=== PATIENT | male | born 1995 | race African-American/Black ===

== ENCOUNTER 2020-02-25 22:11 | Emergency (ER) | payer OTHER ==
--- OUTSIDE RECORDS SUMMARY | 2020-02-25 22:18 | XMS REPORT | Summary of Care ---
:1995 Author Organization [facility] Address [address] [place] [id number] Care Team Providers Name Role Phone Mirtha Weaver Primary Care Provider Reason for Visit Reason Comments Allergic reaction Auth/Cert Status Reason Specialty Diagnoses / Referred By Referred To Procedures Contact Contact Emergency Medicine Ad[facility] Em ergency Dept [address] [place] [address] Fax: Encounter Details Date Type Department Care Team Description 01/05/2020 Emergency ADC-Emergency Sonya Lala, Urticaria (Primary Dx); Department EMNP Allergic reaction, initial encounter [address] [facility] [address] [place] [address] [id number] [place], [place] [address] Allergies No Known Allergiesdocumented as of this encounter (statuses as of 01/05/2020) Medications Medication Sig Dispensed Refills Start Date End Date Status predniSONE 20 mg Take 1 tablet by 8 tablet 0 01/05/202001/08 Active tabletIndications: mouth 2 (two) Urticaria, Allergic times daily for 4 reaction, initial days. encounter documented as of this encounter (statuses as of 01/05/2020) Active Problems No known active problemsdocumented as of this encounter (statuses as of 01/05/2020) Social History Tobacco Use Types Packs/Day Years Used Date Never Assessed Sex Assigned at Date Recorded Not on file COVID-19 Exposure Response Date Recorded In the last month, have you been in contact with No / Unsure 01/05/2020 4:24 PM CDT someone who was confirmed or suspected to have Coronavirus / COVID-19? documented as of this encounter Last Filed Vital Signs Vital Sign Reading Time Taken Comments Blood Pressure 114/77 01/05/2020 5:30 PM CDT Pulse 78 01/05/2020 5:20 PM CDT Temperature 37 C (98.6 F) 01/05/2020 4:32 PM CDT Respiratory Rate 21 01/05/2020 5:30 PM CDT Oxygen Saturation 100% 01/05/2020 5:30 PM CDT Inhaled Oxygen Concentration - - Weight 77.6 kg (171 lb) 01/05/2020 4:25 PM CDT Height 175.3 cm (5' 9") 01/05/2020 4:25 PM CDT Body Mass Index 25.25 01/05/2020 4:25 PM CDT documented in this encounter Discharge Instructions Sonya Hinds EMNP - 01/05/2020NO LIFE-THREATENING FINDINGS ON TODAY'S EXAM. SPECIAL INSTRUCTIONS: 1. Take medicines as prescribed 2. Recommend taking benadryl 25-50mg every 6 hours for rash/itching 3. Recommend taking pepcid twice daily for 3-5 days 4. See attached information Your hives will come and go over the next few days, please continue to take medicine as listed above. If you have difficulty breathing, swallowing, please seek medical help [place]. You will likely need to follow up with family medicine provider or dermatology for allergy testing. FOLLOW-UP RECOMMENDATIONS: RECOMMEND FOLLOW-UP WITH A PRIMARY CARE PROVIDER OR SPECIALIST IN 2-5 DAYS, ESPECIALLY IF NO IMPROVEMENT IN SYMPTOMS. TO FOLLOW-UP WITHIN THE [facility], TRY THESE OPTIONS (CLINIC APPOINTMENTS AVAILABLE ON BQOL-NS-VGMI BASIS): 1. SCHEDULE AN APPOINTMENT ONLINE AT WWW.[facility] 2. OR CALL THE [facility] ACCESS CENTER AT OR 3. OR CALL YOUR [facility] PHYSICIAN'S OFFICE DIRECTLY IF YOU ARE ALREADY AN ESTABLISHED [facility] PATIENT. OR, YOU MAY FOLLOW-UP WITH A PROVIDER OF YOUR CHOICE, SUCH : 1. A PHYSICIAN OF YOUR CHOICE 2. [facility], . LOCATIONS IN [facility] 3. [facility], [address], [place]; [phone] RETURN TO ER FOR WORSENING OF SYMPTOMS. AttachmentsThe following attachments cannot be sent through Care Everywhere. Hives (Adult) (Jordanian)Hives (Urticaria) Understanding (Jordanian)Allergic Reactions, General (Jordanian)documented in this encounter ED Notes Carolina Pavon RN - 01/05/2020 4:24 PM CDTPatient had a mtz smoothie from local restaurant at noon today. Afterwards he threw up and startedto notice hives everywhere. At 1500 today he took 50mg benadryl with no relief. Generalized hives noted. No audible wheezing. documented in this encounter Plan of Treatment Health Maintenance Due Date Last Done Comments VARICELLA VACCINES (1 of 2 - 2-dose 01/30/1997 childhood series) MENINGOCOCCAL B VACCINES (1 of 2 - 01/30/2006 Risk Bexsero 2-dose series) HPV VACCINES (1 - Male 2-dose 01/30/2007 series) Depression Screening 2008 DTaP,Tdap,and Td Vaccines (1 - 01/30/2015 Tdap) INFLUENZA VACCINE (#1) 2019 PNEUMOCOCCAL 0-64 YEARS COMBINED Aged Out No longer eligible based on SERIES patient's age to complete this topic documented as of this encounter Procedures Procedure Name Priority Date/Time Associated Diagnosis Comme nts CONSENT/REFUSAL FOR Routine 01/05/2020 4:16 PM CDT DIAGNOSIS AND TREATMENT documented in this encounter Results Not on filedocumented in this encounter Visit Diagnoses Diagnosis Urticaria - Primary Urticaria, unspecified Allergic reaction, initial encounter documented in this encounter Administered Medications Medication Order MAR Action Action Date Dose Rate Site famotidine 20 mg in NS 50 ml New Bag 01/05/2020 4:38 PM CDT 20 mg (PEPCID) 20 mg/50 mL Piggyback 20 mg 20 mg, IV Piggyback, ONCE, 1 dose, 01/05/20 at 1745, 50 mL methylprednisolone sod succ (SOLU-MEDROL) Given 01/05/2020 4:37 PM CDT 125 mg injection 125 mg 125 mg, Slow IV Push, ONCE, 1 dose, 01/05/20 at 1745, STAT NaCl 0.9% (NS) bolus infusion New Bag 01/05/2020 4:37 PM CDT 1,000 mL 999 mL/hr 1,000 mL at 999 mL/hr, 1,000 mL, IV Infusion, ONCE, 1 dose, 01/05/20 at 1745, STAT documented in this encounter documented as of this encounter
--- OUTSIDE RECORDS SUMMARY | 2020-02-25 22:18 | XMS REPORT | Summary of Care ---
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 Cough (Primary Dx); Department 301 [facility] Hemoptysis 132 [facility] [id number] [place] [id number] Allergies No Known Allergiesdocumented as of this encounter (statuses as of 12/09/2019) Medications No known medicationsdocumented as of this encounter (statuses as of 12/09/2019) Active Problems No known active problemsdocumented as of this encounter (statuses as of 12/09/2019) Social History Tobacco Use Types Packs/Day Years Used Date Never Assessed Sex Assigned at Date Recorded Not on file COVID-19 Exposure Response Date Recorded In the last month, have you been in contact with Yes 12/09/2019 11:54 AM CDT someone who was confirmed or suspected to have Coronavirus / COVID-19? documented as of this encounter Last Filed Vital Signs Vital Sign Reading Time Taken Comments Blood Pressure 118/81 12/09/2019 10:16 AM CDT Pulse 67 12/09/2019 10:16 AM CDT Temperature 37.1 C (98.7 F) 12/09/2019 10:16 AM CDT Respiratory Rate 16 12/09/2019 10:16 AM CDT Oxygen Saturation 97% 12/09/2019 10:16 AM CDT Inhaled Oxygen Concentration - - Weight 81.6 kg (180 lb) 12/09/2019 10:16 AM CDT Height - - Body Mass Index - - documented in this encounter Discharge Instructions Anand Dallas FNP - 12/09/2019DIAGNOSIS 1. Cough, hemoptysis NO LIFE-THREATENING FINDINGS ON TODAY'S EXAM. RECOMMEND FOLLOW-UP WITH A PRIMARY CARE PROVIDER OR SPECIALIST IN 2-5 DAYS, ESPECIALLY IF NO IMPROVEMENT IN SYMPTOMS. MAY FOLLOW-UP WITH A PROVIDER OF YOUR CHOICE, SUCH : 1. A PHYSICIAN OF YOUR CHOICE 2. [address] [place] [address], [address] [place] [address]; [phone] [facility], [address] [place] [address]; [phone] OR, IF YOU WISH TO FOLLOW-UP WITHIN THE [facility], MAY TRY THESE OPTIONS (CLINIC APPOINTMENTS AVAILABLE ON [id number]-[id number] BASIS): 1. SCHEDULE AN APPOINTMENT ONLINE AT WWW.[facility] 2. OR CALL THE [facility] ACCESS CENTER AT OR 3. OR CALL YOUR [facility] PHYSICIAN'S OFFICE DIRECTLY IF YOU ARE ALREADY AN ESTABLISHED [facility] PATIENT. RETURN TO ER FOR WORSENING OF SYMPTOMS. AttachmentsThe following attachments cannot be sent through Care Everywhere. Hemoptysis (Tanzanian)documented in this encounter ED Notes Andrey Girard RN - 12/09/2019 10:15 AM CDTPatient c/o coughing up blood this morning. documented in this encounter Miscellaneous Notes ED Nurse Note - Arlen Cuenca RN - 12/09/2019 12:07 PM CDTPt given printed and verbal discharge instructions regarding cough, hemoptasis encouraged hydration, Discussed ibuprofen and to take with food to avoid GI distress. Pt verbalized understanding of instructions, pt awake alert oriented, resp reg unlabored, skin w/d, color appropriate for race, moves all ext well,pt encouraged to follow up with PCP if worsening signsand symptoms. Advised to seek medical attention for new/prolonged/worsening of symptoms, Symptoms increase signs of infection, fever over 100.4 No adverse reaction to meds given in ER noted upon discharge PIV d'cd, dressing to site, catheter in tact. Awake, alert oriented, resp reg unlabored, skin w/d, pt leaving amb with steady gait, in no apparent distress, documented in this encounter Plan of Treatment Name Type Priority Associated Diagnoses Date/Ti me CORONAVIRUS COVID-19 LAB STAT Cough 020 11:52 AM CDT TESTING Name Type Priority Associated Diagnoses Order S chedule CORONAVIRUS COVID-19 LAB Routine Cough ONCE fo r 1 Occurrences TESTING starting 2019 until 12/09/2019 Health Maintenance Due Date Last Done Comments [...] Name Priority Date/Time Associated Diagnosis Comme nts XR CHEST 1 VW STAT 12/09/2019 11:36 AM Cough Results for this CDT procedure are i n the results section. NOTICE OF PRIVACY Routine 12/09/2019 10:01 AM PRACTICES CDT documented in this encounter Results Chest 1 View (12/09/2019 11:36 AM CDT) Specimen Narrative Performed At HISTORY: Cough. PACS/VR/DOSE TECHNIQUE: Portable AP erect view of the chest is obta ined. No prior chest study available for comparison. FINDINGS: No acute pneumonia. No pneumot horax or pleural effusion or pulmonary congestion detected. Cardiac s ize is within normal limits. CONCLUSIONS: No signs of acute cardiopulmonary disease . Procedure Note [facility], Radiant Results Inft User - 2019 11:40 AM CDT HISTORY: Cough. TECHNIQUE: Portable AP erect view of the chest is obtained. No prior chest study available for comparison. FINDINGS: No acute pneumonia. No pneumot horax or pleural effusion or pulmonary congestion detected. Cardiac s ize is within normal limits. CONCLUSIONS: No signs of acute cardiopul monary disease. Performing Organization Address City/State/Zipcode Phone Number PACS/VR/DOSE documented in this encounter Visit Diagnoses Diagnosis Cough - Primary Hemoptysis Hemoptysis, unspecified documented in this encounter Additional Health Concerns Infection Onset Date Last Indicated Resolved Time COVID-19 Rule Out 12/09/2019 12/09/2019 documented as of this encounter documented as of this encounter
--- OUTSIDE RECORDS SUMMARY | 2020-02-25 22:18 | XMS REPORT | Continuity of Care Document ---
:1995 Author Organization [facility] t Address [address] [place] [place] [address] Care Team Providers Name Role Phone Néstor Duffy Attending Clinician Nell Golden Attending Clinician Doctor Unassigned, Name Attending Clinician Unavailable Lab, Fam Pob I Attending Clinician Unavailable Problems This patient has no known problems. Allergies, Adverse Reactions, Alerts This patient has no known allergies or adverse reactions. Medications This patient has no known medications. Procedures This patient has no known procedures. Encounters Start End Encounter Admission Attending Care Care Encounter Source Date/Time Date/Time Type Type Clinicians Facility Department ID 2020-01-05 2020-01-05 Emergency [facility] [id number] 16:24:00 17:38:00 Sonya Anand [id number] [place] [id number] [place] [address] [id number] 2019-12-09 2019-12-09 Emergency [facility] [id number] 11:00:00 12:09:00 Anand Anand [id number] [place] [id number] [place] [address] [id number] 2019-12-09 2019-12-09 Orders Doctor KELLOGG [id number] 00:00:00 00:00:00 Only UnassignedNARCISO [id number] [place] [facility] [id number] 2019-11-17 2019-11-24 Laboratory Lab, [facility] [id number] 14:20:00 13:06:48 Only Fam Pob I Health [id number] [place] [id number] [place] [phone] nal [address] Results This patient has no known results.
--- OUTSIDE RECORDS SUMMARY | 2020-02-25 22:18 | XMS REPORT | Summary of Care ---
:1995 Author Organization [facility] - Health Address [address] [place] [address] Care Team Providers Name Role Phone Unavailable Primary Care Provider Unavailable Encounter Details Date Type Department Care Team Description 12/09/2019 Orders Only [facility] Doctor Unassigned, No [address] [facility] [place] [address] [address] [place] [address] Allergies Not on Filedocumented as of this encounter (statuses as of 12/09/2019) Medications Not on filedocumented as of this encounter (statuses as of 12/09/2019) Active Problems Not on filedocumented as of this encounter (statuses as of 12/09/2019) Social History Tobacco Use Types Packs/Day Years Used Date Never Assessed Sex Assigned at Date Recorded Not on file COVID-19 Exposure Response Date Recorded In the last month, have you been in contact with No / Unsure 11/17/2019 8:23 AM CDT someone who was confirmed or suspected to have Coronavirus / COVID-19? documented as of this encounter Last Filed Vital Signs Not on filedocumented in this encounter Plan of Treatment Health [...] Associated Diagnosis Comme nts CONSENT/REFUSAL FOR Routine 12/09/2019 10:01 AM CDT DIAGNOSIS AND TREATMENT documented in this encounter Results Not on filedocumented in this encounter Insurance Payer Benefit Plan / Group Subscriber ID Effective Dates Phone Address Type NATE SULLIVAN II [id number] 2019-Present [place] documented as of this encounter
[2020-02-25] MEDS ORDERED: dexAMETHasone 4 MG/ML VIAL ONE (22:54)
[2020-02-25] MEDS ORDERED: FAMOTIDINE 20 MG/2 ML VIAL IV ONE (22:54)
[2020-02-25] MEDS ORDERED: NA CHLORIDE 0.9% 1,000 ML ONE (22:54)
[2020-02-25] MEDS ORDERED: DIPHENHYDRAMINE 50 MG/ML VIAL ONE (23:02)
--- NOTE | 2020-02-25 23:58 | ER ---
Nurse's Notes [facility] Name: Constantino Higuera Age: 25 yrs Sex: Male : 1995 Arrival Date: 02/25/2020 Time: 22:12 Bed 20 Private MD: Diagnosis: Urticaria Presentation: 02/24 22:22 Chief complaint: Patient states: "I ate a kiwi about 40 min ago i started breaking out. jd3 it is not really that bad, but when I swallow it feels different and that is one of the things that got me worried.". Coronavirus screen: At this time, the client does not indicate any symptoms associated with coronavirus-19. Ebola Screen: Patient negative for fever greater than or equal to 101.5 degrees Fahrenheit, and additional compatible Ebola Virus Disease symptoms. Onset: The symptoms/episode began/occurred suddenly. Anaphylaxis evaluation, no signs or symptoms of anaphylaxis were noted. Initial Sepsis Screen: Does the patient meet any 2 criteria? No. Patient's initial sepsis screen is negative. Does the patient have a suspected source of infection? No. Patient's initial sepsis screen is negative. Risk Assessment: Do you want to hurt yourself or someone else? Patient reports no desire to harm self or others. Onset of symptoms was February 25, 2020. 22:22 Method Of Arrival: Ambulatory jd3 22:22 Acuity: CHET 3 jd3 Triage Assessment: 22:35 General: Behavior is calm. lp1 Historical: - Allergies: 22:23 No Known Allergies; jd3 - Home Meds: 22:23 None [Active]; jd3 - PMHx: 22:23 None; jd3 - PSHx: 22:23 Ear Tubes; right foot surg; jd3 - Immunization history:: Adult Immunizations up to date. - Social history:: Smoking status: Patient/guardian denies using tobacco, Stopped _ months ago 0.5. Screenin:35 Abuse screen: Denies threats or abuse. Denies injuries from another. Nutritional lp1 screening: No deficits noted. Tuberculosis screening: No symptoms or risk factors identified. Fall Risk Assessment: 22:35 General: Appears in no apparent distress. lp1 22:35 Pain: Denies pain. Neuro: Level of Consciousness is awake, alert, obeys commands, lp1 Oriented to person, place, time, situation. Cardiovascular: Patient's skin is warm and dry. Respiratory: Airway is patent Respiratory effort is even, unlabored, Respiratory pattern is regular, Breath sounds are clear bilaterally. Denies shortness of breath. GI: No signs and/or symptoms were reported involving the gastrointestinal system. : No signs and/or symptoms were reported regarding the genitourinary system. EENT: Throat is clear. Derm: Rash noted that is itchy, red, raised, urticaria. 22:35 Musculoskeletal: No deficits noted. lp1 23:33 Reassessment: Patient is alert, oriented x 3, equal unlabored respirations, skin lp1 warm/dry/pink. Hives noted to be less raised, redness resolved Patient states feeling better. Patient states symptoms have improved. Vital Signs: 22:24 BP 119 / 91; Pulse 102; Resp 18 S; Temp 98.2(O); Pulse Ox 97% on R/A; Weight 77.11 kg j (R); Height 5 ft. 9 in. (175.26 cm) (R); Pain 0/10; 23:35 BP 120 / 93; Pulse 68; Resp 16; Pulse Ox 99% on R/A; lp1 02/25 00:05 BP 129 / 92; Pulse 81; Resp 16; Pulse Ox 99% on R/A; lp1 02/24 22:24 Body Mass Index 25.10 (77.11 kg, 175.26 cm) [facility] ED Course: 02/24 22:12 Patient arrived in ED. ag5 22:12 [facility] Killian [facility] 22:12 Alexsander Aguilar MD is Attending Physician. [facility] 22:23 Triage completed. jd3 22:26 Arm band placed on. jd3 22:30 Zohra Daly, JAK is Primary Nurse. lp1 22:35 Patient has correct armband on for positive identification. lp1 22:39 Inserted saline lock: 20 gauge in left antecubital area, using aseptic technique. lp1 23:35 No provider procedures requiring assistance completed. lp1 02/25 00:06 IV discontinued, No redness/swelling at site. Pressure dressing applied. lp1 Administered Medications: 02/24 22:45 Drug: NS 0.9% 1000 ml Route: IV; Rate: 1 bolus; Site: left antecubital; lp1 02/25 00:07 Follow up: IV Status: IV converted to saline lock; IV Intake: 800ml lp1 02/24 22:45 Drug: Decadron - Dexamethasone 10 mg Route: IVP; Site: left antecubital; lp1 02/25 00:07 Follow up: Response: No adverse reaction lp1 02/24 22:45 Drug: Pepcid 20 mg Route: IVP; Site: left antecubital; lp1 02/25 00:07 Follow up: Response: No adverse reaction lp1 02/24 22:52 Drug: diphenhydrAMINE 25 mg Route: IVP; Site: left antecubital; lp1 02/25 00:07 Follow up: Response: No adverse reaction lp1 Intake: 00:07 IV: 800ml; Total: 800ml. lp1 Outcome: 02/24 23:57 Discharge ordered by MD. carrasquillo 02/25 00:06 Discharged to home ambulatory. lp1 Condition: good Discharge instructions given to patient, Instructed on discharge instructions, follow up and referral plans. medication usage, Demonstrated understanding of instructions, follow-up care, medications, Prescriptions given X 2. 00:06 Patient left the ED. lp1 Signatures: Alexey Killian PA PA jmm Pena, Laura, RN RN lp1 Andrea Shepherd RN RN jWagner Byrne ag5 Corrections: (The following items were deleted from the chart) 02/24 22:24 22:22 Chief complaint: Patient states: "I ate a kiwi about 40 min ago i started jd3 breaking out." jd3 22:24 22:22 Acuity: CHET 4 jd3 jd3 23:35 23:34 General: Appears lp1 lp1
--- NOTE | 2020-02-25 23:58 | EDPHYS ---
Physician Documentation [facility] Name: Constantino Higuera Age: 25 yrs Sex: Male : 1995 Arrival Date: 02/25/2020 Time: 22:12 Bed 20 Private MD: ED Physician Alexsander Aguilar HPI: 02/24 22:58 This 25 yrs old Black Male presents to ER via Ambulatory with complaints of Allergic jmm Reaction. 22:58 The patient presents with itching, rash. Onset: The symptoms/episode began/occurred jmm just prior to arrival. Associated signs and symptoms: Pertinent positives: hives, rash, Pertinent negatives: chest pain, dysphagia, fever, headache, shortness of breath, Syncope vomiting. Possible causes: just ate a kiwi prior to reaction. At home the patient or guardian has treated the symptoms with Benadryl. Historical: - Allergies: 22:23 No Known Allergies; jd3 - Home Meds: 22:23 None [Active]; jd3 - PMHx: 22:23 None; jd3 - PSHx: 22:23 Ear Tubes; right foot surg; jd3 - Immunization history:: Adult Immunizations up to date. - Social history:: Smoking status: Patient/guardian denies using tobacco, Stopped _ months ago 0.5. ROS: 22:58 Constitutional: Negative for fever, chills, and weight loss, Cardiovascular: Negative jmm for chest pain, palpitations, and edema, Respiratory: Negative for shortness of breath, cough, wheezing, and pleuritic chest pain, Abdomen/GI: Negative for abdominal pain, nausea, vomiting, diarrhea, and constipation. 22:58 Skin: Positive for rash. 22:58 All other systems are negative. Exam: 22:58 Constitutional: This is a well developed, well nourished patient who is awake, alert, jmm and in no acute distress. Head/Face: atraumatic. Eyes: EOMI, no conjunctival erythema appreciated ENT: Moist Mucus Membranes Neck: Trachea midline, Supple Chest/axilla: Normal chest wall appearance and motion. Cardiovascular: Regular rate and rhythm. No edema appreciated Respiratory: Normal respirations, no respiratory distress appreciated Abdomen/GI: Non distended, soft Back: Normal ROM 22:58 Skin: hives noted diffusely . 22:58 Neuro: Orientation: is normal, Mentation: is normal, Memory: is normal. 22:58 Psych: Behavior/mood is pleasant, cooperative. Vital Signs: 22:24 BP 119 / 91; Pulse 102; Resp 18 S; Temp 98.2(O); Pulse Ox 97% on R/A; Weight 77.11 kg jd3 (R); Height 5 ft. 9 in. (175.26 cm) (R); Pain 0/10; 23:35 BP 120 / 93; Pulse 68; Resp 16; Pulse Ox 99% on R/A; lp1 02/25 00:05 BP 129 / 92; Pulse 81; Resp 16; Pulse Ox 99% on R/A; lp1 02/24 22:24 Body Mass Index 25.10 (77.11 kg, 175.26 cm) jd3 MDM: 02/24 22:33 Patient medically screened. neida 23:56 Data reviewed: vital signs, nurses notes. Counseling: I had a detailed discussion with neida the patient and/or guardian regarding: the historical points, exam findings, and any diagnostic results supporting the discharge/admit diagnosis, the need for outpatient follow up, to return to the emergency department if symptoms worsen or persist or if there are any questions or concerns that arise at home. ED course: Hives have decreased. Patient is advised to d/c [place]. Advised to follow up with pcp and otherwise given strict return precautions. Patient understood and agrees with the plan of care. . 02/24 22:33 Order name: Saline Lock; Complete Time: 22:39 [facility] Administered Medications: 22:45 Drug: NS 0.9% 1000 ml Route: IV; Rate: 1 bolus; Site: left antecubital; lp1 02/25 00:07 Follow up: IV Status: IV converted to saline lock; IV Intake: 800ml lp1 02/24 22:45 Drug: Decadron - Dexamethasone 10 mg Route: IVP; Site: left antecubital; lp1 02/25 00:07 Follow up: Response: No adverse reaction lp1 02/24 22:45 Drug: Pepcid 20 mg Route: IVP; Site: left antecubital; lp1 02/25 00:07 Follow up: Response: No adverse reaction 1 02/24 22:52 Drug: diphenhydrAMINE 25 mg Route: IVP; Site: left antecubital; lp1 02/25 00:07 Follow up: Response: No adverse reaction lp1 Disposition: 00:31 Co-signature as Attending Physician, Alexsander Aguilar MD. rn Disposition: 02/25/20 23:57 Discharged to Home. Impression: Urticaria. - Condition is Stable. - Discharge Instructions: Hives. - Prescriptions for Hydroxyzine HCl 25 mg Oral Tablet - take 1 tablet by ORAL route every 6 hours As needed; 30 tablet. Prednisone 20 mg Oral Tablet - take 3 tablet by ORAL route once daily for 5 days; 15 tablet. - Medication Reconciliation Form, Thank You Letter, Antibiotic Education, Prescription Opioid Use, Work release form form. - Follow up: Private Physician; When: 2 - 3 days; Reason: Recheck today's complaints, Continuance of care, Re-evaluation by your physician. Signatures: Alexey Killian PA PA jmm Nieto, Roman, MD MD rn Zohra Daly RN RN lp1 Andrea Shepherd RN RN jd3 Corrections: (The following items were deleted from the chart) 00:06 02/24 23:57 02/25/2020 23:57 Discharged to Home. Impression: Urticaria. Condition is lp1 Stable. Forms are Medication Reconciliation Form, Thank You Letter, Antibiotic Education, Prescription Opioid Use. Follow up: Private Physician; When: 2 - 3 days; Reason: Recheck today's complaints, Continuance of care, Re-evaluation by your physician. neida
[2020-02-26 01:34] VITALS: TEMP 98.2
[2020-02-26 01:36] VITALS: O2SAT 99
[2020-02-26 01:37] VITALS: BP 129/92
== END 2020-02-26 00:06 | disposition home or self-care (01) ==
LOC: ER 22:11
DX: L50.9 Urticaria, unspecified (principal)
CPT/HCPCS: 96361; 96375; 96374; 99283; J1100; J1200; J7030

== ENCOUNTER 2022-02-21 08:32 | Emergency (ER) | payer BC ==
--- OUTSIDE RECORDS SUMMARY | 2022-02-21 08:37 | XMS REPORT | Continuity of Care Document ---
:1995 Author Organization [facility] t Address [address] [place] [address] [place] [id number] Care Team Providers Name Role Phone WILMER COX Attending Clinician Unavailable Tereza TECHNICAL MAINTENANCE SPECIALIST-CWilmer Attending Clinician NEEL COREA Attending Clinician Unavailable Sonya Duffy Attending Clinician Anand Golden Attending Clinician Doctor Unassigned, [place] Attending Clinician Unavailable Lab, Adc Fam Pob I Attending Clinician Unavailable Enedelia Tidwell Attending Clinician ENEDELIA CALLAHAN Attending Clinician Unavailable Payers Payer Name Policy Type Policy Number Effective Date Expiration Date S ruby CIGNA II [id number] 2019 00:00:00 BCBS 2 [id number] 2020 00:00:00 Problems Condition Condition Condition Status Onset Resolution Last Treating Co mments Source Name Details Category Date Date Treatment Clinician Date Childhood Childhood Disease Active Juwan sey asthma asthma 01-02 Seybold 00:00: 00 No known No known Disease Unive rs active active ity of problems problems [facility] Allergies, Adverse Reactions, Alerts Allergy Allergy Status Severity Reaction(s) Onset Inactive Treating Comm ents Source Name Type Date Date Clinician NO KNOWN Drug Active [facility] ALLERGIE Class ity of [facility] Social History Social Habit Start Date Stop Date Quantity Comments Source Sex Assigned At [facility] Exposure to Not sure Shaila Raymondol missael SARS-CoV-2 (event) History of tobacco Cigarette Smoker Shaila Price use Smoking Status Start Date Stop Date Source Smokes tobacco daily 2020-08-30 00:00:00 Shaila Price Unknown if ever smoked [facility] Medications Ordered Filled Start Stop Current Ordering Indication Dosage Frequency Signature Comments Components Source Medication Medication Date Date Medication? Clinician (SIG) Name Name Albuterol Yes [id number] 2{puff} Q6H Inhale 2 Shaila HFA 108 (90 9-07 puffs into Se ybold Base) 00:00: the lungs MCG/ACT IN 00 every 6 AERS hours as needed for wheezing Pseudoephed Yes [id number] 1{tbl} Take 1 Shaila rine-Guaife 01-02 tablet by Jesse avilain 00:00: mouth (Mucinex D 00 every 12 Max hours Strength) 120-1200 MG oral Tablet 12 Hour Sustained Release Dexamethaso Yes [id number] 6mg Take 1 Shaila ne 6 MG 01-02 tablet (6 Seybold oral Tablet 00:00: mg total) 00 by mouth daily (with breakfast) FLUTICASONE 2020-0 202- No [id number] 50ug Use 1 Shaila PROPIONATE, 01-02 10-08 spray (50 Se ybold NASAL, 00:00: 04:59 mcg total) (Flonase) 00 :00 in each 50 MCG/ACT nostril nasal daily Suspension Doxycycline Yes [id number] 100mg Take 1 Shaila Hyclate 100 5-05 tablet Seybol d MG oral 00:00: (100 mg Tablet 00 total) by mouth 2 times daily NaCl 0.9% 2019-0 2019- No 1000mL at 999 Uni vers (NS) bolus 01-04 09-09 mL/hr, ity of infusion 22:45: 22:34 1,000 mL, Loc as 1,000 mL 00 :00 IV Medical Infusion, Sofía ONCE, 1 dose, 01/05/20 at 1745, STAT famotidine No 20mg 20 mg, IV U nivers 20 mg in NS 01-04 Piggyback, i ty of 50 ml 22:45: 22:34 ONCE, 1 [place] (PEPCID) 20 00 :00 dose, Wed Med ical mg/50 mL 01/05/20 at Branch Piggyback 1745, 50 20 mg mL methylpredn No 125mg 125 mg, U nivers isolone sod 01-04 Slow IV ity of succ 22:45: 21:37 Push, [place] (SOLU-MEDRO 00 :00 ONCE, 1 Medic al L) dose, Fri Branch injection 01/05/20 at 125 mg 1745, STAT predniSONE No [id number] 20mg Take 1 Univers 20 mg 01-04 tablet by ity of tablet 00:00: 04:59 mouth 2 [place] 00 :00 (two) Medical times [place] daily for 4 days. No known No [facility] Immun[facility] Ordered Immunization Filled Immunization Date Status Commen ts Source Name Name Influenza Virus 2020-02-16 Completed Shaila Se ybold Vaccine, age 6 months 00:00:00 and up Influenza Virus 2019-03-24 Completed Shaila Se ybold Vaccine, age 6 months 00:00:00 and up Influenza Virus 2018-03-18 Completed Shaila Se ybold Vaccine, age 6 months 00:00:00 and up Meningococcal 2015-08-22 Completed Shaila Raymond old Vaccine- 00:00:00 Conjugate(Menactra) Meningococcal 2015-08-21 Completed Shaila Raymond old Vaccine- 00:00:00 Conjugate(Menactra) Vital Signs Vital Name Observation Time Observation Value Comments Source Systolic blood 2020-01-05 22:30:00 114 mm[Hg] Univer sity of pressure [facility] Diastolic blood 2020-01-05 22:30:00 77 mm[Hg] Unive rsity of pressure [facility] Respiratory rate 2020-01-05 22:30:00 21 /min [facility] saturation in 2020-01-05 22:30:00 100 /min [facility] Arterial blood by [facility] Pulse oximetry Branch Heart rate 2020-01-05 22:20:00 78 /min [facility] [place] [facility] Body temperature 2020-01-05 21:32:25 37 Chelle [facility] [place] [facility] Body height 2020-01-05 21:25:00 175.3 cm [facility] [place] [facility] Body weight 2020-01-05 21:25:00 77.565 kg [facility] [place] [facility] BMI 2020-01-05 21:25:00 25.25 kg/m2 [facility] [place] [facility] Systolic blood 2020-01-05 22:30:00 114 mm[Hg] Univer sity of pressure [place] [facility] Diastolic blood 2020-01-05 22:30:00 77 mm[Hg] Unive rsity of pressure [place] [facility] Respiratory rate 2020-01-05 22:30:00 21 /min [facility] [place] [facility] Oxygen saturation in 2020-01-05 22:30:00 100 /min University of Arterial blood by [facility] Pulse oximetry Branch Heart rate 2020-01-05 22:20:00 78 /min [facility] [place] [facility] Body temperature 2020-01-05 21:32:25 37 [place]le [facility] [place] [facility] Body height 2020-01-05 21:25:00 175.3 cm [facility] [place] [facility] Body weight 2020-01-05 21:25:00 77.565 kg [facility] [place] [facility] BMI 2020-01-05 21:25:00 25.25 kg/m2 [facility] [place] [facility] Systolic blood 2019-12-09 15:16:00 118 mm[Hg] Univer sity of pressure [place] [facility] Diastolic blood 2019-12-09 15:16:00 81 mm[Hg] Unive rsity of pressure [place] [facility] Heart rate 2019-12-09 15:16:00 67 /min [facility] [place] [facility] Body temperature 2019-12-09 15:16:00 37.06 [place]le [facility] [place] [facility] Respiratory rate 2019-12-09 15:16:00 16 /min [facility] [place] [facility] Body weight 2019-12-09 15:16:00 81.647 kg [facility] [place] [facility] Oxygen saturation in 2019-12-09 15:16:00 97 /min University of Arterial blood by [place] CK1 roberto Pulse oximetry Branch Systolic blood 2019-12-09 15:16:00 118 mm[Hg] Univer sity of pressure [facility] Diastolic blood 2019-12-09 15:16:00 81 mm[Hg] Unive rsity of pressure [facility] Heart rate 2019-12-09 15:16:00 67 /min [facility] Body temperature 2019-12-09 15:16:00 37.06 Chelle [facility] Respiratory rate 2019-12-09 15:16:00 16 /min [facility] Body weight 2019-12-09 15:16:00 81.647 kg [facility] Oxygen saturation in 2019-12-09 15:16:00 97 /min [facility] Arterial blood by [facility] Pulse oximetry Branch Procedures Procedure Date / Time Performed Performing Clinician Sour e CONSENT/REFUSAL FOR 2020-01-05 21:16:07 Doctor Unassigned, [facility] Name [facility] Branch TREATMENT XR CHEST 1 VW 2019-12-09 16:36:09 Anand Cuevas [facility] NOTICE OF PRIVACY 2019-12-09 15:01:30 Doctor Unassigned, No Univ [facility] [place] [facility] Name Medical Branch CONSENT/REFUSAL FOR 2019-12-09 15:01:17 Doctor Unassigned, No Un [facility] [place] DIAGNOSIS AND Name Medical Branch TREATMENT Encounters Start End Encounter Admission Attending Care Care Encounter Source Date/Time Date/Time Type Type Clinicians Facility Department ID 2021-02-23 Emergency [facility] [id number] [facility] 2021-02-23 Emergency [facility] [id number] [facility] 2021-01-03 2021-01-03 Outpatient SHAILA COX [id number] Shaila 00:00:00 00:00:00 WILMER canas 2021-01-02 2021-01-02 Telemedici Sean Cox [id number] Shaila 16:15:53 16:45:53 ne Wilmer Velasquez [id number] Se [place] [id number] 2021-01-02 2021-01-02 Outpatient SHAILA COREA [id number] Shaila 00:00:00 00:00:00 NEEL Macybol missael 2021-01-02 2021-01-02 Outpatient SHAILA COX SHAILA [id number] Shaila 00:00:00 00:00:00 WILMER Segundool missael 2021-01-02 2021-01-02 Outpatient SHAILA OCX SHAILA [id number] Shaila 00:00:00 00:00:00 WILMER Raymondol missael 2020-01-05 2020-01-05 Emergency [facility] [id number] 16:24:00 17:38:00 Sonya R [place] [id number] [place] [address] [place] [address] [id number] 2020-01-05 2020-01-05 [facility] [id number] [facility] 16:24:00 17:38:00 Sonya R [place] [id number] i ty of [place] 4.2.7.2.[address] [place] [id number] 2019-12-09 2019-12-09 [facility] [id number] 11:00:00 12:09:00 Anand B [place] [id number] [place] [address] [place] [address] [id number] [facility] 2019-12-09 2019-12-09 Emergency [facility] [id number] [facility] 11:00:00 12:09:00 Anand B [place] [id number] i ty of [place] 4.2.7.2.[address] [place] [id number] 2019-12-09 2019-12-09 Orders Doctor KELLOGG [id number] 00:00:00 00:00:00 Only Unassigned, NARCISO [id number] [place] [address]68 [phone] [facility] 2019-12-09 2019-12-09 Orders Doctor KELLOGG [id number] Univers 00:00:00 00:00:00 Only Unassigned, NARCISO [id number] ity of [place] [facility] [id number] Loc as [phone] [address] 2019-11-17 2019-11-24 Laboratory Lab, [facility] [id number] 14:20:00 13:06:48 Only Fam Pob I Health [id number] [place] [id number] Professio [phone] [place] [address] [address] [facility] 2019-11-17 2019-11-24 Laboratory Lab, [facility] [id number] Univers 14:20:00 13:06:48 Only Fam Pob I Health [id number] ity of [place] [id number] Loc as Professio [phone] [address] Office Building [facility] 2019-11-20 2019-11-20 Laboratory Lab, [facility] Fam Pob I [facility] [id number] Univers 12:58:27 13:18:27 Only Enedelia [facility] [id number] ity of [place] [id number] Loc as Professio [phone] [address] Office Building [facility] 2019-11-20 2019-11-20 Outpatient R ZULMA [facility] [id number] Univers 13:00:00 13:00:00 ENEDELIA ity of [facility] 2019-11-20 2019-11-20 Letter Doctor VALDEZ [id number] Univers 00:00:00 00:00:00 (Out) Unassigned, NARCISO [id number] ity of [place] [facility] [id number] Loc as [phone] [address] Results Test Description Test Time Test Comments Results Result [facility] e Comments Chest 1 View 2019-11-27 HISTORY: Cough. Univers ity of 3 TECHNIQUE: Portable [facility] 16:39:29 AP erect view of the Bran ch chest is obtained. No prior cheststudy available for comparison. FINDINGS: No acute pneumonia. No pneumothorax or pleural effusion orpulmonary congestion detected. Cardiac size is within normal limits. CONCLUSIONS: No signs of acute cardiopulmonary disease.[facility], Radiant Results Inft User - 12/09/2019 11:40 AM CDTHISTORY: Cough.TECHNIQUE: Portable AP erect view of the chest is obtained. No prior cheststudy available for comparison.FINDINGS: No acute pneumonia. No pneumothorax or pleural effusion orpulmonary congestion detected. Cardiac size is within normal limits. CONCLUSIONS: No signs of acute cardiopulmonary disease.
[2022-02-21] MEDS ORDERED: dexAMETHasone 10 MG/ML VIAL ONE (09:25)
--- NOTE | 2022-02-21 10:43 | ER ---
Nurse's Notes [facility] Name: Constantino Higuera Age: 27 yrs Sex: Male : 1995 Arrival Date: 02/21/2022 Time: 08:35 Bed 10 Private MD: Diagnosis: Influenza Presentation: 02/21 08:42 Chief complaint: Patient states: Chest and nasal congestion, cough and body aches x 1 ph week. Coronavirus screen: Vaccine status: Patient reports being unvaccinated. Ebola Screen: No symptoms or risks identified at this time. Initial Sepsis Screen: Does the patient meet any 2 criteria? No. Patient's initial sepsis screen is negative. Does the patient have a suspected source of infection? No. Patient's initial sepsis screen is negative. Risk Assessment: Do you want to hurt yourself or someone else? Patient reports no desire to harm self or others. Onset of symptoms was February 21, 2022. 08:42 Method Of Arrival: Ambulatory ph 08:42 Acuity: CHET 4 ph Triage Assessment: 09:10 General: Appears in no apparent distress. comfortable, well groomed, Behavior is calm, ph cooperative, appropriate for age. Pain: Denies pain. Neuro: Level of Consciousness is awake, alert, obeys commands, Oriented to person, place, time, situation. Respiratory: Reports shortness of breath cough that is productive, Airway is patent Respiratory effort is even, unlabored, Respiratory pattern is regular, symmetrical. Derm: Skin is healthy with good turgor, Skin is pink, warm \T\ dry. Musculoskeletal: Circulation, motion, and sensation intact. Range of motion: intact in all extremities. Historical: - Allergies: 08:42 No Known Allergies; ph - PMHx: 08:42 Asthma; ph - PSHx: 08:41 None; ph - Immunization history:: Adult Immunizations unknown. - Social history:: Smoking status: Reported history of juuling and/or vaping. Screenin:11 Abuse screen: Denies threats or abuse. Denies injuries from another. Nutritional ph screening: No deficits noted. Tuberculosis screening: No symptoms or risk factors identified. Fall Risk None identified. Assessment: 09:11 General: SEE TRIAGE ASSESSMENT. ph Vital Signs: 08:40 BP 114 / 80; Pulse 77; Resp 18; Temp 98.9(O); Pulse Ox 97% on R/A; Weight 82.55 kg; ph Height 5 ft. 9 in. (175.26 cm); 08:40 Body Mass Index 26.88 (82.55 kg, 175.26 cm) ph ED Course: 08:35 Patient arrived in ED. mr 08:43 Triage completed. ph 08:43 Arm band placed on Patient placed in an exam room. ph 08:48 Alexey Killian PA is PHCP. [facility] 08:48 Fuentes Everett MD is Attending Physician. [facility] 09:05 Rosemarie Bermeo, RN is Primary Nurse. iw 09:11 Patient has correct armband on for positive identification. Bed in low position. Call light in reach. 09:11 No provider procedures requiring assistance completed. ph 10:50 Patient did not have IV access during this emergency room visit. ph Administered Medications: 09:44 Drug: Decadron (dexamethasone) 10 mg Route: IM; Site: right deltoid; ph 10:36 Follow up: Response: No adverse reaction ph Medication: 09:11 VIS not applicable for this client. ph Outcome: 10:42 Discharge ordered by . [facility] 10:50 Discharged to home ambulatory. ph 10:50 Condition: good 10:50 Discharge instructions given to patient, Instructed on discharge instructions, follow up and referral plans. medication usage, Demonstrated understanding of instructions, follow-up care, medications, Prescriptions given X 2. 10:50 Patient left the ED. ph Signatures: Alexey Killian PA PA [facility] GaytanLouisa mr Rosemarie Bermeo, RN RN Sarah Lindsey RN RN
--- NOTE | 2022-02-21 10:43 | EDPHYS ---
Physician Documentation [facility] Name: Constantino Higuera Age: 27 yrs Sex: Male : 1995 Arrival Date: 02/21/2022 Time: 08:35 Bed 10 Private MD: ED Physician Fuentes Everett HPI: 02/21 09:03 This 27 yrs old Black Male presents to ER via Ambulatory with complaints of Sinus jmm Congestion. 09:03 The patient or guardian reports cough. Onset: The symptoms/episode began/occurred jmm gradually, 1 week(s) ago. Modifying factors: The symptoms are alleviated by nothing, the symptoms are aggravated by nothing. This is a 27 year old male with a history of asthma that presents to the ED with complaints of cough, sinus congestion, body aches beginning approx a week ago. . Historical: - Allergies: 08:42 No Known Allergies; ph - PMHx: 08:42 Asthma; ph - PSHx: 08:41 None; ph - Immunization history:: Adult Immunizations unknown. - Social history:: Smoking status: Reported history of juuling and/or vaping. ROS: 09:03 Constitutional: Positive for body aches. jmm 09:03 ENT: Positive for sinus congestion. 09:03 Respiratory: Positive for cough. 09:03 MS/extremity: Positive for pain. 09:03 All other systems are negative. Exam: 09:03 Constitutional: This is a well developed, well nourished patient who is awake, alert, jmm and in no acute distress. Head/Face: atraumatic. Eyes: EOMI, no conjunctival erythema appreciated 09:03 Neck: Trachea midline, Supple Chest/axilla: Normal chest wall appearance and motion. Cardiovascular: Regular rate and rhythm. No edema appreciated Respiratory: Normal respirations, no respiratory distress appreciated Abdomen/GI: Non distended Back: Normal ROM Skin: General appearance color normal MS/ Extremity: Moves all extremities, no obvious deformities appreciated, no edema noted to the lower extremities Neuro: Awake and alert Psych: Behavior is normal, Mood is normal, Patient is cooperative and pleasant 09:03 ENT: Posterior pharynx: erythema, that is mild. Vital Signs: 08:40 BP 114 / 80; Pulse 77; Resp 18; Temp 98.9(O); Pulse Ox 97% on R/A; Weight 82.55 kg; ph Height 5 ft. 9 in. (175.26 cm); 08:40 Body Mass Index 26.88 (82.55 kg, 175.26 cm) ph MDM: 08:49 Patient medically screened. [facility] 10:41 Data reviewed: vital signs, nurses notes. Counseling: I had a detailed discussion with [facility] the patient and/or guardian regarding: the historical points, exam findings, and any diagnostic results supporting the discharge/admit diagnosis, the need for outpatient follow up, to return to the emergency department if symptoms worsen or persist or if there are any questions or concerns that arise at home. 02/21 08:42 Order name: Flu; Complete Time: 09:16 ph 02/21 08:42 Order name: COVID-19 SARS RT PCR (Document "Date of Onset" if Symptomatic); Complete ph Time: 10:19 Administered Medications: 09:44 Drug: Decadron (dexamethasone) 10 mg Route: IM; Site: right deltoid; ph 10:36 Follow up: Response: No adverse reaction ph Disposition Summary: 02/21/22 10:42 Discharge Ordered Location: Home [facility] Condition: Stable [facility] Diagnosis - Influenza [facility] Followup: [facility] - With: Private Physician - When: 2 - 3 days - Reason: Recheck today's complaints, Continuance of care, Re-evaluation by your physician Discharge Instructions: - Influenza, Adult [facility] - Discharge Summary Sheet ph Forms: - Medication Reconciliation Form [facility] - Thank You Letter [facility] - Work release form ph - Antibiotic Education [facility] - Prescription Opioid Use [facility] Prescriptions: - albuterol sulfate 90 mcg/actuation Inhalation HFA aerosol inhaler - inhale 2 puff by INHALATION route every 6 hours; 1 Pump; Refills: 0, Product [facility] Selection Permitted - Bromfed DM 2-30-10 mg/5 mL Oral syrup - take 10 milliliter by ORAL route every 4 hours As needed; 200 milliliter; [facility] Refills: 0, Product Selection Permitted Signatures: Dispatcher [employer] Fuentes Calhoun MD MD cha Mickail, Joel, PA PA jmm Hall, Patricia, RN RN ph
[2022-02-21 10:54] VITALS: BP 114/80; TEMP 98.9; O2SAT 97
== END 2022-02-21 10:50 | disposition home or self-care (01) ==
LOC: ER 08:32
DX: J11.1 Influenza due to unidentified influenza virus with other respiratory manifestations (principal); Z20.822 Contact with and (suspected) exposure to COVID-19
CPT/HCPCS: 87804 ×2; 96372; 99283; U0003; J1100

== ENCOUNTER → 2023-06-25 | Emergency (ER) | payer BC, SELFPAY ==
--- OUTSIDE RECORDS SUMMARY | 2023-06-25 19:59 | XMS REPORT | Continuity of Care Document ---
Author Name Unknown Address [address] [place] [address] [facility] thconnect Address [address] [place] [address] Care Team Providers Care Kerrick Kleaner Operator Name Role Phone WILMER COX Attending Clinician Unavailable Wilmer Slater Attending Clinician [phone] NEEL COREA Attending Clinician Unava ilable Sonya Duffy Attending Clinician [phone] Anand Golden Attending Clinician [phone] Doctor Unassigned, [place] Attending Clinician [facility], Adc Fam Pob I Attending Clinician Unavailab Enedelia Bardales Attending Clinician [phone] ENEDELIA MAYA Attending Clinician Unavailable Payers Payer Name Policy Type Policy Number Effective Date Expirati on Date Source [employer] II [id number] 2019 00:00:00 BCBS 2 [id number] 2020 00:00:00 Problems Condition Name Condition Details Condition Category Status Onset Date Resolution Date Last Treatment Date Treating Clinician Comments Source Childhood asthma Childhood asthma Disease Active 01-02 00:00: 00 Shaila Price No known active problems No known active problems Disease [facility] Allergies, Adverse Reactions, Alerts Allergy Name Allergy Type Status Severity Reaction(s) Onset Date Inactive Date Treating Clinician Comments Source NO KNOWN ALLERGIE S Drug Class Active [facility] Social History Social Habit Start Date Stop Date Quantity Comments Source Sex Assigned At [facility] Exposure to SARS-CoV-2 (event) Not sure Shaila Mac jeanie History of tobacco use Cigarette Smoker Shaila jarvis Smoking Status Start Date Stop Date Source Smokes tobacco daily 2020-08-30 00:00:00 Shaila Raymondsimona Unknown if ever smoked [facility] Medications Ordered Medication Name Filled Medication Name Start Date Stop Date Current Medication? Ordering Clinician Indication Dosage Frequency Signature (SIG) Comments Components Source Albuterol HFA 108 (90 Base) MCG/ACT IN AERS 01-02 00:00: 00 Yes [id number] 2{puff} Q6H Inhale 2 puffs into the lungs every 6 hours as needed for wheezing Shaila Price Pseudoephed rine-Guaife nesin (Mucinex D Max Strength) 120-1200 MG oral Tablet 12 Hour Sustained Release 01-02 00:00: 00 Yes [id number] 1{tbl} Take 1 tablet by mouth every 12 hours Shaila Price Dexamethaso ne 6 MG oral Tablet 01-02 00:00: 00 Yes [id number] 6mg Take 1 tablet (6 mg total) by mouth daily (with breakfast) Shaila Price FLUTICASONE PROPIONATE, NASAL, (Flonase) 50 MCG/ACT nasal Suspension 01-02 00:00: 00 02-02 04:59 :00 No [id number] 50ug Use 1 spray (50 mcg total) in each nostril daily Shaila Price Doxycycline Hyclate 100 MG oral Tablet 08-30 00:00: 00 Yes [id number] 100mg Take 1 tablet (100 mg total) by mouth 2 times daily Shaila Price NaCl 0.9% (NS) bolus infusion 1,000 mL 01-04 22:45: 00 01-04 22:34 :00 No 1000mL at 999 mL/hr, 1,000 mL, IV Infusion, ONCE, 1 dose, 01/05/20 at 1745, STAT [facility] famotidine 20 mg in NS 50 ml (PEPCID) 20 mg/50 mL Piggyback 20 mg 01-04 22:45: 00 01-04 22:34 :00 No 20mg 20 mg, IV Piggyback, ONCE, 1 dose, Fri01/05/20 at 1745, 50 mL [facility] methylpredn isolone sod succ (SOLU-MEDRO L) injection 125 mg 01-04 22:45: 00 01-04 21:37 :00 No 125mg 125 mg, Slow IV Push, ONCE, 1 dose, Fri01/05/20 at 1745, STAT [facility] predniSONE 20 mg tablet 01-04 00:00: 00 01-09 04:59 :00 No [id number] 20mg Take 1 tablet by mouth 2 (two) times daily for 4 days. [facility] No known medications No Un [facility] Vital Signs Vital Name Observation Time Observation Value Comments S ource Systolic blood pressure 2020-01-05 22:30:00 114 mm[Hg] [facility] Diastolic blood pressure 2020-01-05 22:30:00 77 mm[Hg] [facility] Respiratory rate 2020-01-05 22:30:00 21 /min [facility] Oxygen saturation in Arterial blood by Pulse oximetry 2020-01-05 22:30:00 100 /min [facility] Heart rate 2020-01-05 22:20:00 78 /min [facility] Body temperature 2020-01-05 21:32:25 37 Chelle [facility] Body height 2020-01-05 21:25:00 175.3 cm [facility] Body weight 2020-01-05 21:25:00 77.565 kg [facility] BMI 2020-01-05 21:25:00 25.25 kg/m2 [facility] Systolic blood pressure 2020-01-05 22:30:00 114 mm[Hg] [facility] Diastolic blood pressure 2020-01-05 22:30:00 77 mm[Hg] [facility] Respiratory rate 2020-01-05 22:30:00 21 /min [facility] Oxygen saturation in Arterial blood by Pulse oximetry 2020-01-05 22:30:00 100 /min [facility] Heart rate 2020-01-05 22:20:00 78 /min [facility] Body temperature 2020-01-05 21:32:25 37 Chelle [facility] Body height 2020-01-05 21:25:00 175.3 cm [facility] Body weight 2020-01-05 21:25:00 77.565 kg [facility] BMI 2020-01-05 21:25:00 25.25 kg/m2 [facility] Systolic blood pressure 2019-12-09 15:16:00 118 mm[Hg] [facility] Diastolic blood pressure 2019-12-09 15:16:00 81 mm[Hg] [facility] Heart rate 2019-12-09 15:16:00 67 /min [facility] Body temperature 2019-12-09 15:16:00 37.06 Chelle [facility] Respiratory rate 2019-12-09 15:16:00 16 /min [facility] Body weight 2019-12-09 15:16:00 81.647 kg [facility] Oxygen saturation in Arterial blood by Pulse oximetry 2019-12-09 15:16:00 97 /min [facility] Systolic blood pressure 2019-12-09 15:16:00 118 mm[Hg] [facility] Diastolic blood pressure 2019-12-09 15:16:00 81 mm[Hg] [facility] Heart rate 2019-12-09 15:16:00 67 /min [facility] Body temperature 2019-12-09 15:16:00 37.06 Chelle [facility] Respiratory rate 2019-12-09 15:16:00 16 /min [facility] Body weight 2019-12-09 15:16:00 81.647 kg [facility] Oxygen saturation in Arterial blood by Pulse oximetry 2019-12-09 15:16:00 97 /min [facility] Procedures Procedure Date / Time Performed Performing Clinicia n Source CONSENT/REFUSAL FOR DIAGNOSIS AND TREATMENT 2020-01-05 21:16:07 Doctor Unassigned, [place] [facility] XR CHEST 1 VW 2019-12-09 16:36:09 Anand Cuevas [facility] NOTICE OF PRIVACY PRACTICES 2019-12-09 15:01:30 Doctor Unassigned, [place] [facility] CONSENT/REFUSAL FOR DIAGNOSIS AND TREATMENT 2019-12-09 15:01:17 Doctor Unassigned, [place] [facility] Encounters Start Date/Time End Date/Time Encounter Type Admission Type Attending [facility] Care Facility Care Department Encounter ID Source 2021-02-23 16:42:49 Emergency [facility] [id number] [facility] 2021-02-23 12:16:42 Emergency [facility] [id number] [facility] 2021-01-03 00:00:00 2021-01-03 00:00:00 Outpatient WILMER COX [id number] [facility] 2021-01-02 16:15:53 2021-01-02 16:45:53 Telemedici ne Wilmer Cox [place] 1..840.114 350.1.13.13 [id number] [id number] Shaila [facility] 2021-01-02 00:00:00 2021-01-02 00:00:00 Outpatient NEEL COREA [id number] [facility] 2021-01-02 00:00:00 2021-01-02 00:00:00 Outpatient WILMER COX [id number] Shaila [facility] 2021-01-02 00:00:00 2021-01-02 00:00:00 Outpatient WILMER COX [id number] Shaila [facility] 2020-01-05 16:24:00 2020-01-05 17:38:00 Emergency Sonya Lala [facility] ..840.114 350.1.13.10 4.2.7.2.686 [id number] 2020-01-05 16:24:00 2020-01-05 17:38:00 Emergency Sonya Lala [facility] [id number] 350.1.13.10 [id number] [id number] [facility] 2019-12-09 11:00:00 2019-12-09 12:09:00 Emergency Anand Cuevas [facility] [id number] 350.1.13.10 4.2.7.2.686 [id number] 2019-12-09 11:00:00 2019-12-09 12:09:00 Emergency Anand Cuevas [facility] [id number] 350.1.13.10 4.2.7.2.686 [id number] [facility] 2019-12-09 00:00:00 2019-12-09 00:00:00 Orders Only Doctor Unassigned, [place] [facility] [id number] 350.1.13.10 4.2.7.2.686 [id number] 2019-12-09 00:00:00 2019-12-09 00:00:00 Orders Only Doctor Unassigned, [place] [facility] [id number] 350.1.13.10 4.2.7.2.686 [id number] [facility] 2019-11-17 14:20:00 2019-11-24 13:06:48 Laboratory Only Lab, Adc Fam Pob I [facility] 1.840.114 350.1.13.10 4.2.7.2.686 [id number] 2019-11-17 14:20:00 2019-11-24 13:06:48 Laboratory Only Lab, Adc Fam Pob I [facility] [id number] 350.1.13.10 4.2.7.2.686 [id number] [facility] 2019-11-20 12:58:27 2019-11-20 13:18:27 Laboratory Only Lab, Adc Fam Pob Enedelia Ott [facility] 1.0.114 350.1.13.10 4.2.7.2.686 [id number] [facility] 2019-11-20 13:00:00 2019-11-20 13:00:00 Outpatient R ENEDELIA MAYA [facility] [id number] [facility] 2019-11-20 00:00:00 2019-11-20 00:00:00 Letter (Out) Doctor Unassigned, [place] [facility] 1.840.114 350.1.13.10 4.2.7.2.686 [id number] [facility] Results Test Description Test Time Test Comments Results Resul t Comments Source Chest 1 View 2019-11-27 3 16:39:29 HISTORY: Cough. TECHNIQUE: Portable AP erect view of the chest is obtained. No prior cheststudy available for comparison. FINDINGS: No acute pneumonia. No pneumothorax or pleural effusion orpulmonary congestion detected. Cardiac size is within normal limits. CONCLUSIONS: No signs of acute cardiopulmonary disease.[facility], [facility] Results Inft User - 12/09/2019 11:40 AM CDTHISTORY: Cough.TECHNIQUE: Portable AP erect view of the chest is obtained. No prior cheststudy available for comparison.FINDINGS: No acute pneumonia. No pneumothorax or pleural effusion orpulmonary congestion detected. Cardiac size is within normal limits. CONCLUSIONS: No signs of acute cardiopulmonary disease. [facility]
[2023-06-25 23:08] LABS: Specific Gravity 1.007 (1.005-1.030); Urine Bacteria None Seen /HPF (<20); Urine Bilirubin NEGATIVE (Negative); Urine Blood 2+ (Negative); Urine Clarity Clear (Clear); Urine Color Colorless (Yellow); Urine Glucose NEGATIVE (Negative); Urine Mucus Slight /HPF (None Seen); Urine Protein NEGATIVE (Negative); Urine RBC <5 /HPF (None Seen); Urine Urobilinogen Normal (Normal)
--- NOTE | 2023-06-25 23:16 | EDPHYS ---
Physician Documentation [facility] Name: Constantino Higuera Age: 28 yrs Sex: Male : 1995 Arrival Date: 06/25/2023 Time: 19:56 Bed 7 Private MD: ED Physician Lucho Reyna HPI: 06/25 22:52 This 28 yrs old Black Male presents to ER via Ambulatory with complaints of Groin Pain. kb 22:52 Patient is a 28-year-old male who presents for penile swelling that started 2 weeks ago kb and is gotten better. States he was tested for STIs and was negative for all of those but wanted to come in to get evaluated. Denies urinary symptoms, fever, penile discharge, testicular pain. Historical: - Allergies: 20:24 No Known Allergies; vc1 - Home Meds: 20:24 None [Active]; vc1 - PMHx: 20:24 Asthma; vc1 - Immunization history:: Client reports having NOT received the Covid vaccine. - Social history:: Smoking status: Reported history of juuling and/or vaping. ROS: 22:52 Constitutional: Negative for fever, chills, and weight loss, kb 22:52 : Positive for penile pain, 22:52 All other systems are negative, Exam: 22:52 Constitutional: This is a well developed, well nourished patient who is awake, alert, kb and in no acute distress. Head/Face: Normocephalic, atraumatic. ENT: Moist Mucous membranes Cardiovascular: Regular rate Respiratory: Respirations even and unlabored. No increased work of breathing. Talking in full sentences Abdomen/GI: Soft, non-tender. No distention Male : Normal genitalia with no discharge or lesions. Skin: Warm, dry with normal turgor. Normal color. MS/ Extremity: Pulses equal, no cyanosis. Neurovascular intact. Full, normal range of motion. Neuro: Awake and alert, GCS 15, oriented to person, place, time, and situation. Moves all extremities. Normal gait. Vital Signs: 20:22 Weight 79.38 kg; Height 5 ft. 9 in. ; Pain 0/10; vc1 20:27 BP 136 / 90; Pulse 89; Resp 18; Temp 98.3; Pulse Ox 100% ; vc1 22:31 BP 160 / 97; Pulse 70; Pulse Ox 100% on R/A; Pain 0/10; tm6 23:22 BP 134 / 66; Pulse 70; Resp 17; Temp 97.5(TE); Pulse Ox 100% on R/A; Pain 0/10; tm6 20:22 Body Mass Index 25.84 (79.38 kg, 175.26 cm) vc1 20:22 Pain Scale: Adult vc1 22:31 Pain Scale: Adult tm6 23:22 Pain Scale: Adult tm6 MDM: 20:18 Patient medically screened. kb 22:54 Differential diagnosis: UTI, Balanitis. Data reviewed: vital signs, nurses notes. kb 23:14 Counseling: I had a detailed discussion with the patient and/or guardian regarding the kb historical points, exam findings, and any diagnostic results supporting the discharge/admit diagnosis, lab results, the need for outpatient follow up, a family practitioner, to return to the emergency department if symptoms worsen or persist or if there are any questions or concerns that arise at home. ED course: Normal exam. No rash, erythema, swelling noted to penis. Pt educated to follow up with urology if symptoms return. 06/25 22:30 Order name: Urinalysis w/ reflexes; Complete Time: 23:14 rv1 Administered Medications: No medications were administered Disposition: 23:56 Co-signature as Attending Physician, Lucho Reyna MD I agree with the assessment sp4 and plan of care. I reviewed the patient's care provided by the Advanced Practice Provider and agree with the diagnosis and treatment plan. Disposition Summary: 06/25/23 23:15 Discharge Ordered Notes: Location: Home kb Condition: Stable kb Diagnosis - Penile pain kb Followup: kb - With: Emergency Department - When: As needed - Reason: Worsening of condition Followup: kb - With: Private Physician - When: 2 - 3 days - Reason: Recheck today's complaints, Continuance of care, Re-evaluation by your physician Discharge Instructions: - Discharge Summary Sheet kb Forms: - Medication Reconciliation Form kb - Thank You Letter kb - Antibiotic Education kb - Prescription Opioid Use kb - Patient Portal Instructions kb - Leadership Thank You Letter kb Signatures: Dispatcher [employer] EDShantal Winters FNP-C FNP-Ckb Calcote, Vanessa, RN RN vcLucho Teran MD MD sp4 Corrections: (The following items were deleted from the chart) 20:26 20:24 PSHx: None; vc1 vc1
--- NOTE | 2023-06-25 23:16 | ER ---
Nurse's Notes [facility] Name: Constantino Higuera Age: 28 yrs Sex: Male : 1995 Arrival Date: 06/25/2023 Time: 19:56 Bed 7 Private MD: Diagnosis: Penile pain Presentation: 06/25 20:22 Chief complaint: Patient states: I am swelling around my penis. Ebola Screen: Patient vc1 negative for fever greater than or equal to 101.5 degrees Fahrenheit, and additional compatible Ebola Virus Disease symptoms Patient denies exposure to infectious person. Patient denies travel to an Ebola-affected area in the 21 days before illness onset. No symptoms or risks identified at this time. Initial Sepsis Screen: Risk Assessment: Do you want to hurt yourself or someone else? Patient reports no desire to harm self or others. Onset of symptoms is unknown. 20:22 Acuity: CHET 4 vc1 20:22 Method Of Arrival: Ambulatory vc1 20:22 Coronavirus screen: Vaccine status: Patient reports being unvaccinated. vc1 23:24 Initial Sepsis Screen: Does the patient meet any 2 criteria? No. Patient's initial tm6 sepsis screen is negative. Does the patient have a suspected source of infection? No. Patient's initial sepsis screen is negative. Triage Assessment: 20:26 General: Appears in no apparent distress. uncomfortable, Behavior is calm, cooperative, vc1 appropriate for age. Pain: Denies pain. EENT: No deficits noted. No signs and/or symptoms were reported regarding the EENT system. Neuro: Level of Consciousness is awake, alert, obeys commands. Cardiovascular: No deficits noted. Respiratory: Airway is patent Trachea Respiratory effort is even, unlabored, Respiratory pattern is regular, symmetrical. GI: No deficits noted. No signs and/or symptoms were reported involving the gastrointestinal system. : Reports swelling to penis. Derm: No deficits noted. Musculoskeletal: No deficits noted. No signs and/or symptoms reported regarding the musculoskeletal system. Historical: - Allergies: 20:24 No Known Allergies; vc1 - Home Meds: 20:24 None [Active]; vc1 - PMHx: 20:24 Asthma; vc1 - Immunization history:: Client reports having NOT received the Covid vaccine. - Social history:: Smoking status: Reported history of juuling and/or vaping. Screenin:30 [facility] ED Fall Risk Assessment (Adult) History of falling in the last 3 months, bp including since admission No falls in past 3 months (0 pts). Abuse screen: Denies threats or abuse. Denies injuries from another. Nutritional screening: No deficits noted. Tuberculosis screening: No symptoms or risk factors identified. Assessment: 20:30 General: SEE TRIAGE NOTE. bp 22:31 Pain: Denies pain. Neuro: Level of Consciousness is awake, alert, obeys commands, tm6 Oriented to person, place, time, situation. Cardiovascular: Capillary refill < 3 seconds Patient's skin is warm and dry. Respiratory: Airway is patent Respiratory effort is even, unlabored, Respiratory pattern is regular, symmetrical. GI: Abdomen is flat, non-distended. : Genitalia appear normal Reports previous swelling, but has gone down now. Reported recent unprotected sex. EENT: No signs and/or symptoms were reported regarding the EENT system. Derm: No signs and/or symptoms reported regarding the dermatologic system. Musculoskeletal: No signs and/or symptoms reported regarding the musculoskeletal system. 23:22 Reassessment: Patient appears in no apparent distress at this time. Patient and/or tm6 family updated on plan of care and expected duration. Pain level reassessed. Patient is alert, oriented x 3, equal unlabored respirations, skin warm/dry/pink. Vital Signs: 20:22 Weight 79.38 kg; Height 5 ft. 9 in. ; Pain 0/10; vc1 20:27 BP 136 / 90; Pulse 89; Resp 18; Temp 98.3; Pulse Ox 100% ; vc1 22:31 BP 160 / 97; Pulse 70; Pulse Ox 100% on R/A; Pain 0/10; tm6 23:22 BP 134 / 66; Pulse 70; Resp 17; Temp 97.5(TE); Pulse Ox 100% on R/A; Pain 0/10; tm6 20:22 Body Mass Index 25.84 (79.38 kg, 175.26 cm) vc1 20:22 Pain Scale: Adult vc1 22:31 Pain Scale: Adult tm6 23:22 Pain Scale: Adult tm6 ED Course: 20:00 Patient arrived in ED. ae5 20:18 Shantal Velasquez FNP-C is PSYCHIATRICP. kb 20:18 Lucho Reyna MD is Attending Physician. kb 20:23 Triage completed. vc1 20:26 Arm band placed on right wrist. vc1 20:30 Patient has correct armband on for positive identification. bp 20:30 penis exam. tm6 22:03 Jose Ramey, RN is Primary Nurse. bp 22:31 Provided Education on: plan of care. Client placed on continuous cardiac and pulse tm6 oximetry monitoring. NIBP monitoring applied. Pulse ox on. NIBP on. Door closed. Noise minimized. 23:22 Patient did not have IV access during this emergency room visit. tm6 Administered Medications: No medications were administered Medication: 20:30 VIS not applicable for this client. bp Outcome: 23:15 Discharge ordered by MD. kb 23:23 Discharged to home tm6 23:23 Condition: stable 23:23 Discharge instructions given to patient, Instructed on discharge instructions, follow up and referral plans. Demonstrated understanding of instructions, follow-up care, 23:24 Patient left the ED. tm6 Signatures: Shantal Velasquez, OPERATIONS VICE PRESIDENT-C OPERATIONS VICE PRESIDENT-Ckb Jose Ramey, RN RN bp Piedad Castro RN RN vc1 Urbano Vazquez RN RN tm6 Yari Valdes ae5 Corrections: (The following items were deleted from the chart) 20:24 20:22 Coronavirus screen: Vaccine status: Patient reports receiving the 2nd dose of the vc1 covid vaccine. Client denies travel out of the [place] in the last 14 days. At this time, the client does not indicate any symptoms associated with coronavirus-19. vc1 20:26 20:24 PSHx: None; vc1 vc1
[2023-06-25 23:53] VITALS: BP 134/66; TEMP 97.5; O2SAT 100
== END ==
LOC: ER 19:56
DX: N48.89 Other specified disorders of penis (principal)
CPT/HCPCS: 81001

== ENCOUNTER 2025-02-16 11:45 | Emergency (ER) | payer BC, SELFPAY ==
[2025-02-16 12:25] LABS: Absolute Lymphocytes (CBC) 3.3 K/uL (0.7-4.9); Hematocrit 42.6 % (39.6-49.0); Hemoglobin 14.6 g/dL (13.6-17.9); MCH 29.6 pg (27.0-35.0); MCHC 34.3 g/dL (32.0-36.0); MCV 86.3 fL (80-100); MPV 8.1 fL (7.6-11.3); Nucleated RBC Absolute Count 0.0 (0-0); Nucleated Red Blood Cells % 0.1 % (0-0); RBC Red Blood Cell Count 4.93 M/uL (4.33-5.43); White Blood Count 10.10 thou/uL (4.3-10.9)
[2025-02-16 12:28] LABS: PT Prothrombin Time 11.0 SECONDS (10-13.0); Protime INR 0.97
--- NOTE | 2025-02-16 12:32 | RAD REPORT ---
EXAM: Chest Single View HISTORY: 30 years Male CHEST PAIN COMPARISON: 02/13/2015 FINDINGS: LUNGS/PLEURA: The lungs are clear. No pleural effusions or pneumothorax. No pulmonary edema. CARDIAC/MEDIASTINUM: The cardiac silhouette is within normal limits. UPPER ABDOMEN: No significant abnormality. BONES: No acute abnormality. LINES/TUBES/OTHER: N/A IMPRESSION: No evidence of acute cardiopulmonary disease.
[2025-02-16 12:42] LABS: ALT/SGPT 76 U/L (16-61); AST/SGOT 24 U/L (15-37); Albumin 3.4 g/dL (3.4-5.0); Albumin/Globulin Ratio 1.1 (1.1-1.8); Alkaline Phosphatase 87 U/L (45-117); Anion Gap 7.8 mEq/L (5.0-15.0); BUN Blood Urea Nitrogen 10 mg/dL (7-18); Globulin 3.1 g/dL (2.3-3.5); Glucose Level 104 mg/dL (74-106); Magnesium 1.8 mg/dL (1.6-2.4); NT PRO-BNP 46 pg/mL (<125); Potassium 3.8 mEq/L (3.5-5.1); Troponin High Sensitivity 6.3 pg/mL (<58.9)
[2025-02-16 12:44] LABS: Bilirubin Indirect, Calculated 0.1 mg/dL (0.2-0.8)
--- NOTE | 2025-02-16 13:13 | EDPHYS ---
Physician Documentation [facility] Name: Constantino Higuera Age: 30 yrs Sex: Male : 1995 Arrival Date: 02/16/2025 Time: 11:45 Bed 17 Private MD: ED Physician Fuentes Everett HPI: 02/16 12:18 This 30 yrs old Black Male presents to ER via Ambulatory with complaints of Chest Pain. sb4 12:18 Patient reports right sided anterior wall chest pain since yesterday. States it feels sb4 like a throbbing. It is intermittent in nature. States that it occasionally radiates to his right arm. Denies any associated symptoms -no shortness of breath, dizziness, nausea, vomiting, fever, chills, diaphoresis. Does have a history of asthma but does not complain of any wheezing or breathing difficulty. Historical: - Allergies: 12:06 No Known Allergies; bp - PMHx: 12:06 Asthma; bp - Immunization history:: Adult Immunizations up to date. - Infectious Disease History:: Denies. - Social history:: Smoking status: unknown. ROS: 12:18 Constitutional: Negative for fever, chills, and weight loss, sb4 12:18 Cardiovascular: Positive for chest pain, 12:18 All other systems are negative, Exam: 12:18 Constitutional: This is a well developed, well nourished patient who is awake, alert, sb4 and in no acute distress. Head/Face: Normocephalic, atraumatic. Eyes: Extra-ocular motions intact. Periorbital areas with no swelling, redness, or edema. ENT: Mucous membranes moist. Cardiovascular: Regular rate and rhythm with a normal S1 and S2. Respiratory: No increased work of breathing, no retractions or nasal flaring. Abdomen/GI: Soft, non-tender, no distension. Skin: Warm, dry with normal turgor. Normal color with no rashes, no lesions, and no evidence of cellulitis. Vital Signs: 12:03 BP 113 / 78; Pulse 72; Resp 16; Temp 98; Pulse Ox 98% ; bp 12:30 BP 114 / 82; Pulse 66; Resp 17; Pulse Ox 100% on R/A; db 13:00 BP 118 / 84; Pulse 55; Resp 17; Pulse Ox 99% on R/A; db MDM: 11:59 Medical Screening Exam initiated sb4 13:28 Differential diagnosis: bronchitis, pneumonia anxiety, abnormal EKG, musculoskeletal sb4 pain. Data reviewed: vital signs, nurses notes, lab test result(s), EKG, radiologic studies, and as a result, I will discharge patient. Scoring Tools HEART Score: History: ECG: Age: Risk Factors: No Risk Factors Known (0), Troponin: Total Score = 0. Counseling: I had a detailed discussion with the patient and/or guardian regarding the historical points, exam findings, and any diagnostic results supporting the discharge/admit diagnosis, lab results, radiology results, the need for outpatient follow up, for definitive care, to return to the emergency department if symptoms worsen or persist or if there are any questions or concerns that arise at home. 13:28 Special discussion: Based on the patient's history, exam, and Dx evaluation, there is sb4 no indication for emergent intervention or inpatient Tx. It is understood by the patient/guardian that if the Sx's persist or worsen they need to return immediately for re-evaluation. 02/16 12:10 Order name: Basic Metabolic Panel; Complete Time: 12:45 sb4 02/16 12:10 Order name: CBC with Diff sb4 02/16 12:10 Order name: LFT's; Complete Time: 12:45 sb4 02/16 12:10 Order name: Magnesium; Complete Time: 12:45 sb4 02/16 12:10 Order name: NT PRO-BNP; Complete Time: 12:45 sb4 02/16 12:10 Order name: PT-INR; Complete Time: 12:29 sb4 02/16 12:10 Order name: Troponin HS; Complete Time: 12:45 sb4 02/16 12:10 Order name: XRAY Chest (1 view); Complete Time: 12:45 sb4 02/16 12:10 Order name: EKG; Complete Time: 12:10 sb4 02/16 12:10 Order name: Cardiac monitoring; Complete Time: 12:18 sb4 02/16 12:10 Order name: EKG - Nurse/Tech; Complete Time: 12:18 sb4 02/16 12:10 Order name: IV Saline Lock; Complete Time: 12:18 sb4 02/16 12:10 Order name: Labs collected and sent; Complete Time: 12:18 sb4 02/16 12:10 Order name: O2 Per Protocol; Complete Time: 12:18 sb4 02/16 12:10 Order name: O2 Sat Monitoring; Complete Time: 12:18 sb4 EC:51 Rate is 55 beats/min. Rhythm is regular, Sinus bradycardia. VT interval is normal at sb4 154 msec. QRS interval is normal at 78 msec. QT interval is normal at 390 msec. No Q waves. No ST changes noted. Clinical impression: No evidence of ischemia. Interpreted by me. Reviewed by me. Administered Medications: No medications were administered Disposition Summary: 02/16/25 13:12 Discharge Ordered Notes: Location: Home sb4 Problem: new sb4 Symptoms: have improved sb4 Condition: Stable sb4 Diagnosis - Chest pain, unspecified sb4 Followup: sb4 - With: Emergency Department - When: As needed - Reason: Trouble breathing, Worsening of condition Discharge Instructions: - Discharge Summary Sheet sb4 - Chest Wall Pain sb4 Forms: - Work release form sb4 - Patient Portal Instructions sb4 - Leadership Thank You Letter sb4 Prescriptions: - Anaprox DS 550 mg Oral Tablet - take 1 tablet ORAL route every 12 hours As needed; 20 tablet; Refills: 0, sb4 Product Selection Permitted - Cyclobenzaprine 5 mg Oral Tablet - take 1 tablet ORAL route 3 times per day As needed; 15 tablet; Refills: 0, sb4 Product Selection Permitted Signatures: Dispatcher [employer] Jose Yanes RN RN bp Brown, Sophia, PA-C PA-C sb4
--- NOTE | 2025-02-16 13:13 | ER ---
Nurse's Notes [facility] Name: Constantino Higuera Age: 30 yrs Sex: Male : 1995 Arrival Date: 02/16/2025 Time: 11:45 Bed 17 Private MD: Diagnosis: Chest pain, unspecified Presentation: 02/16 12:03 Chief complaint: Patient states: INTERMITTENT R CP "THROBBING" SINCE Y/D. Coronavirus bp screen: At this time, the client does not indicate any symptoms associated with coronavirus-19. Ebola Screen: No symptoms or risks identified at this time. Initial Sepsis Screen: Does the patient meet any 2 criteria? No. Patient's initial sepsis screen is negative. Does the patient have a suspected source of infection? No. Patient's initial sepsis screen is negative. Risk Assessment: Do you want to hurt yourself or someone else? Patient reports no desire to harm self or others. Onset of symptoms is unknown. 12:03 Method Of Arrival: Ambulatory bp 12:03 Acuity: CHET 3 bp Triage Assessment: 12:06 General: Appears in no apparent distress. Behavior is cooperative, appropriate for age, bp anxious. Pain: Complains of pain in chest. EENT: No deficits noted. Neuro: No deficits noted. Cardiovascular: Reports chest pain, Rhythm is sinus rhythm. Respiratory: No deficits noted. GI: No signs and/or symptoms were reported involving the gastrointestinal system. : No signs and/or symptoms were reported regarding the genitourinary system. Derm: No deficits noted. Musculoskeletal: No deficits noted. Historical: - Allergies: 12:06 No Known Allergies; bp - PMHx: 12:06 Asthma; bp - Immunization history:: Adult Immunizations up to date. - Infectious Disease History:: Denies. - Social history:: Smoking status: unknown. Screenin:28 [facility] ED Fall Risk Assessment (Adult) History of falling in the last 3 months, db including since admission No falls in past 3 months (0 pts) Confusion or Disorientation No (0 pts) Intoxicated or Sedated No (0 pts) Impaired Gait No (0 pts) Mobility Assist Device Used No (0 pt) Altered Elimination No (0 pt) Score/Fall Risk Level 0 - 2 = Low Risk Oriented to surroundings, Maintained a safe environment. Abuse screen: Denies threats or abuse. Denies injuries from another. Nutritional screening: No deficits noted. Tuberculosis screening: No symptoms or risk factors identified. Assessment: 12:15 Reassessment: Patient appears in no apparent distress at this time. Patient and/or db family updated on plan of care and expected duration. Pain level reassessed. Patient is alert, oriented x 3, equal unlabored respirations, skin warm/dry/pink. General: Appears in no apparent distress. comfortable, Behavior is calm, cooperative. Pain: Complains of pain in chest Pain radiates to right arm Pain began 1 day ago. Neuro: Level of Consciousness is awake, alert, obeys commands, Oriented to person, place, time, situation. Respiratory: Airway is patent Respiratory effort is even, unlabored, Respiratory pattern is regular, symmetrical. 13:27 Reassessment: Patient appears in no apparent distress at this time. Patient and/or db family updated on plan of care and expected duration. Pain level reassessed. Patient is alert, oriented x 3, equal unlabored respirations, skin warm/dry/pink. General: Appears in no apparent distress. comfortable. Vital Signs: 12:03 BP 113 / 78; Pulse 72; Resp 16; Temp 98; Pulse Ox 98% ; bp 12:30 BP 114 / 82; Pulse 66; Resp 17; Pulse Ox 100% on R/A; db 13:00 BP 118 / 84; Pulse 55; Resp 17; Pulse Ox 99% on R/A; db ED Course: 11:51 Patient arrived in ED. cj3 11:54 Jennifer Baker PA-C [facility]. sb4 11:54 Fuentes Everett MD is Attending Physician. sb4 12:04 Triage completed. bp 12:05 Kimberly Pepper, RN is Primary Nurse. db 12:06 Arm band placed on. bp 12:12 Patient maintains SpO2 saturation greater than 95% on room air. db 12:18 Initial lab(s) drawn, by me, sent to lab. Inserted saline lock: 20 gauge in right bc6 forearm, using aseptic technique. Blood collected. Flushed with 10 mL NS. 12:28 XRAY Chest (1 view) In Process Unspecified. EDMS 12:28 Patient has correct armband on for positive identification. Bed in low position. Call db light in reach. Side rails up X 1. Client placed on continuous cardiac and pulse oximetry monitoring. NIBP monitoring applied. surveillance system monitor on. Pulse ox on. NIBP on. Diet tray ordered. 13:27 Provided Education on: DISCHARGE AND FOLLOWUP. db 13: No provider procedures requiring assistance completed. IV discontinued, intact, db bleeding controlled, No redness/swelling at site. Administered Medications: No medications were administered Medication: 12:29 VIS not applicable for this client. db Outcome: 13:12 Discharge ordered by . juana : Discharged to home ambulatory, db 13: Condition: stable 13: Discharge instructions given to patient, Instructed on discharge instructions, follow up and referral plans. Prescriptions given X 2, :29 Patient left the ED. db Signatures: Dispatcher [employer] EDMS Jose Ramey, RN RN Kimberly Flower RN RN Jennifer Owens, PA-C PACarlC sb4 Ignacia Martinez bc6 Janneth Marc cj3
[2025-02-16 14:02] LABS: Differential Total Cells Count 100
[2025-02-16 14:03] LABS: Segmented Neutrophils 37 % (40-80)
[2025-02-16 14:04] LABS: Blood Morphology Comment NOT SEEN (NOT SEEN)
[2025-02-16 15:51] VITALS: TEMP 98
[2025-02-16 16:02] VITALS: BP 118/84; O2SAT 99
== END 2025-02-16 13:29 | disposition home or self-care (01) ==
LOC: ER 11:45
DX: R07.9 Chest pain, unspecified (principal); J45.909 Unspecified asthma, uncomplicated
CPT/HCPCS: 36415; 71045; 80048; 80076; 83735; 83880; 84484; 85025; 85610; 93005; 99284